=== PATIENT | male | born 2000 | race Caucasian/White ===

== ENCOUNTER 2022-04-26 02:56 | Emergency (ER) | payer MEDICAID ==
[~2022-04-26] VITALS: Ht 160 cm; Wt 68.0 kg
[~2022-04-26 02:56] MED LIST: ALBU0.084; BECL80AE9; RISP1TAB63
[2022-04-26 03:04] VITALS: BP 118/71
[2022-04-26] MEDS ORDERED: LIDOCAINE 1% HCL (LOCAL ANESTH.) INJ 20ML MDV ID ONE (03:30)
[2022-04-26] MEDS ORDERED: TETANUS-DIPTH-ACEL PERTUSSIS 0.5ML SYR Tdap IM ONE (03:30)
[2022-04-26] MEDS ORDERED: LIDOCAINE 1% HCL (LOCAL ANESTH.) INJ 20ML MDV ONE (04:13)
[2022-04-26] MEDS ORDERED: BACITRACIN TOP OINT 1 UD PKG TOP ONE (04:15)
== END 2022-04-26 04:29 | disposition home or self-care (01) ==
LOC: ER 02:56
DX: S01.111A Laceration without foreign body of right eyelid and periocular area, initial encounter (principal); J45.909 Unspecified asthma, uncomplicated; Z79.899 Other long term (current) drug therapy; Y04.2XXA Assault by strike against or bumped into by another person, initial encounter; Y93.89 Activity, other specified; Y92.89 Other specified places as the place of occurrence of the external cause; Y99.8 Other external cause status
CPT/HCPCS: 12011; 90471; 90715; 99283; J2001

== ENCOUNTER 2022-04-30 10:01 | Emergency (ER) | payer MEDICAID ==
[~2022-04-30] VITALS: Ht 157.5 cm; Wt 68.6 kg
[2022-04-30 10:27] VITALS: BP 116/62
[2022-04-30] MEDS ORDERED: methylPREDNISolone SOD SUCC 125 MG/2 ML VL IM ONE (11:30)
[2022-04-30] MEDS ORDERED: IPRATROPIUM BROM 0.5 MG/2.5ML INH SOL NEB ONE (11:30)
[2022-04-30] MEDS ORDERED: ALBUTEROL SULF 2.5 MG/0.5ML(0.5%) NEB SOLN NEB ONE (11:30)
[2022-04-30] MEDS ORDERED: ALBUAER3 IN (12:09)
[2022-04-30] MEDS ORDERED: PRED20TA2 PO (12:09)
== END 2022-04-30 12:16 | disposition home or self-care (01) ==
LOC: ER 10:01
DX: J45.901 Unspecified asthma with (acute) exacerbation (principal)
CPT/HCPCS: 94640; 96372; 99283; J2930; J7644

== ENCOUNTER 2022-06-27 00:42 | Emergency (ER) | payer MEDICAID ==
[~2022-06-27] VITALS: Ht 160 cm; Wt 69.1 kg
[~2022-06-27 00:42] MED LIST changes: +ALBUAER3 IN; +PRED20TA2 PO
[2022-06-27 00:44] VITALS: BP 122/72
[2022-06-27] MEDS ORDERED: IBUP800T27 PO (05:54)
[2022-06-27] MEDS ORDERED: CYCL-837 PO (05:54)
[2022-06-27] MEDS ORDERED: KETOROLAC TROMETH 60MG/2ML VIAL IM ONE (06:00)
== END 2022-06-27 06:20 | disposition home or self-care (01) ==
LOC: ER 00:42
DX: S39.012A Strain of muscle, fascia and tendon of lower back, initial encounter (principal); S29.012A Strain of muscle and tendon of back wall of thorax, initial encounter; S16.1XXA Strain of muscle, fascia and tendon at neck level, initial encounter; J45.909 Unspecified asthma, uncomplicated; Z79.1 Long term (current) use of non-steroidal anti-inflammatories (NSAID); Z79.899 Other long term (current) drug therapy; V43.52XA Car driver injured in collision with other type car in traffic accident, initial encounter; Y93.89 Activity, other specified; Y92.410 Unspecified street and highway as the place of occurrence of the external cause; Y99.8 Other external cause status
CPT/HCPCS: 96372; 99283; J1885